=== PATIENT | male | born 1945 | race American Indian/Alaskan Native ===

== ENCOUNTER 2019-02-22 13:15 | Inpatient (IN) | payer MEDICARE ==
--- NOTE | 2019-02-22 14:35 | Event Note ---
ED Screening Note Date of service: 02/22/19 Time: 14:30 ED Screening Note: 73 y/o male c/o pink eye times 4-5 days. Having abd pain, dizziness no engery, decrease appetite. PMH HTN, cholestrol This initial assessment/diagnostic orders/clinical plan/treatment(s) is/are subject to change based on patients health status, clinical progression and re- assessment by fellow clinical providers in the ED. Further treatment and workup at subsequent clinical providers discretion. Patient/guardian urged not to elope from the ED as their condition may be serious if not clinically assessed and managed. Initial orders include:
[2019-02-22 15:31] LABS: Alanine Aminotransferase 65 units/L (7-56); Albumin 2.8 g/dL (3.9-5); BUN/Creatinine Ratio 12; Blood Urea Nitrogen 14 mg/dL (9-20); Calcium 9.3 mg/dL (8.4-10.2); Hemolysis Index 36
--- NOTE | 2019-02-22 16:08 | XRay Report ---
PROCEDURE: XR CHEST ROUTINE 2V TECHNIQUE: PA and lateral chest radiographs were obtained. HISTORY: weakness COMPARISONS: None. FINDINGS: Frontal and lateral views the chest were acquired. There is a right-sided port with its tip in superior vena cava. There is no pneumothorax. There is no consolidative infiltrate. IMPRESSION: No consolidative infiltrate This document is electronically signed by Sidney Daly MD., February 22 2019 04:06:20 PM ET
[2019-02-22 16:16] LABS: Hematocrit 27.9 % (35.5-45.6); Hemoglobin 8.3 gm/dl (11.8-15.2); Mean Corpuscular HGB Conc 30 % (32-34); Mean Corpuscular Volume 80 fl (84-94); Red Blood Count 3.51 M/mm3 (3.65-5.03)
[2019-02-22 16:17] LABS: Red Cell Distribution Width 20.5 % (13.2-15.2)
[2019-02-22 17:07] LABS: Basophils % (Manual) 0.5 % (0.0-1.8); Eosinophils % (Manual) 0.5 % (0.0-4.3); Monocytes % (Manual) 2.5 % (0.0-7.3); Total Cells Counted 200
[2019-02-22 17:08] LABS: Anisocytosis 2+; Hypochromasia 2+; Target Cells 1+
[2019-02-22 17:10] LABS: Ovalocytes Few
[2019-02-22 17:11] LABS: Tear Drop Cells Few
[2019-02-22 17:12] LABS: Poikilocytosis 2+; Schistocytes Few; Smudge Cells 3+
[2019-02-22 17:13] LABS: Platelet Estimate Appears Decreased
[2019-02-22 17:14] LABS: Platelet Count 28 K/mm3 (140-440)
--- NOTE | 2019-02-22 18:31 | Emergency Department Report ---
- General Chief complaint: Weakness Stated complaint: PINK EYE/NOT FEELING WELL Time Seen by Provider: 02/22/19 16:45 Source: patient Mode of arrival: Ambulatory Limitations: No Limitations - History of Present Illness Initial comments: Patient is a 73-year-old male that presents emergency room for complaints of weakness and dizziness. Patient states he's also been having red eyes. He is almost gone on for 2-4 days. Patient states he drinks alcohol every day. Patient states he smokes every day. Patient denies chest pain or shortness of breath. Patient states his symptoms are worsening. Patient states he's been checking his blood pressure always been low. Patient states she has a history of hypertension and T-cell lymphoma. Patient states he had 2 coronary stents in the past.. MD Complaint: generalized weakness, lack of energy -: Gradual, days(s) (2-4 days) Consistency: constant Improves with: rest Worsens with: movement, exertion Associated Symptoms: loss of appetite. denies: chest pain, confusion, dark sto ols, diaphoresis, dysuria, easy bruising, fever/chills, headaches, nausea/vomiting, myalgias, rash, shortness of breath, syncope - Related Data Allergies Allergy/AdvReac Type Severity Reaction Status Date / Time No Known Allergies Allergy Verified 02/22/19 13:20 ED Review of Systems ROS: Stated complaint: PINK EYE/NOT FEELING WELL Other details as noted in HPI Constitutional: weakness. denies: chills, fever Eyes: denies: eye pain, eye discharge, vision change ENT: denies: ear pain, throat pain Respiratory: denies: cough, shortness of breath, wheezing Cardiovascular: denies: chest pain, palpitations Endocrine: no symptoms reported Gastrointestinal: denies: abdominal pain, nausea, diarrhea Genitourinary: denies: urgency, dysuria Musculoskeletal: denies: back pain, joint swelling, arthralgia Skin: denies: rash, lesions Neurological: weakness, vertigo. denies: headache, paresthesias Psychiatric: denies: anxiety, depression Hematological/Lymphatic: denies: easy bleeding, easy bruising ED Past Medical Hx - Past Medical History Previous Medical History?: Yes Hx Hypertension: Yes Hx CVA: No Hx COPD: Yes Additional medical history: high cholesterol. T-cell lymphoma - Surgical History Past Surgical History?: Yes Hx Coronary Stent: Yes (x2) - Family History Family history: no significant - Social History Smoking Status: Current Every Day Smoker Substance Use Type: Alcohol (patient drinks daily) ED Physical Exam - General Limitations: No Limitations General appearance: alert, in no apparent distress - Head Head exam: Present: atraumatic, normocephalic - Eye Eye exam: Present: normal appearance, PERRL, conjunctival injection. Absent: periorbital swelling, periorbital tenderness Pupils: Present: normal accommodation - ENT ENT exam: Present: mucous membranes dry - Neck Neck exam: Present: normal inspection - Respiratory Respiratory exam: Present: normal lung sounds bilaterally. Absent: respiratory distress, wheezes, rales - Cardiovascular Cardiovascular Exam: Present: regular rate, normal rhythm. Absent: systolic murmur, diastolic murmur, rubs, gallop - GI/Abdominal GI/Abdominal exam: Present: soft, normal bowel sounds - Rectal Rectal exam: Present: deferred - Extremities Exam Extremities exam: Present: normal inspection - Back Exam Back exam: Present: normal inspection - Neurological Exam Neurological exam: Present: alert, oriented X3 - Psychiatric Psychiatric exam: Present: normal affect, normal mood - Skin Skin exam: Present: warm, dry, intact, normal color. Absent: rash - Assessment Assessment Interval: Baseline - Level of Consciousness 1a. Level of Consciousness: alert/keenly responsive - LOC Questions 1b. LOC Questions: answers both correctly - LOC Command 1c. LOC Commands: performs tasks correctly - Best Gaze 2. Best Gaze: normal - Visual 3. Visual: no visual loss - Facial Palsy 4. Facial Palsy: normal symmetrical movement - Motor Arm 5a. Motor Arm Left: no drift 5b. Motor Arm Right: no drift - Motor Leg 6a. Motor Leg Left: no drift 6b. Motor Leg Right: no drift - Limb Ataxia 7. Limb Ataxia: absent - Sensory 8. Sensory: normal - Best Language 9. Best Language: no aphasia - Dysarthria 10. Dysarthria: normal - Extinction and Inattention 11. Extinction/Inattention: no abnormality - Scoring Total Score: 0 Stroke Severity: No Stroke Symptoms ED Course Vital Signs 02/22/19 02/22/19 02/22/19 14:27 16:41 16:46 Temperature 97.8 F Pulse Rate 91 H 73 Respiratory 18 26 H Rate Blood Pressure 106/61 130/63 Blood Pressure [Left] O2 Sat by Pulse 98 98 94 Oximetry 02/22/19 02/22/19 02/22/19 17:00 17:16 17:30 Temperature Pulse Rate 75 73 77 Respiratory 13 22 21 Rate Blood Pressure 131/64 114/59 126/66 Blood Pressure [Left] O2 Sat by Pulse 95 92 97 Oximetry 02/22/19 02/22/19 02/22/19 17:46 19:25 21:00 Temperature 98.3 F Pulse Rate 81 83 93 H Respiratory 25 H 17 23 Rate Blood Pressure 106/47 103/62 Blood Pressure 114/83 [Left] O2 Sat by Pulse 95 98 96 Oximetry 02/22/19 02/22/19 02/22/19 22:30 23:00 23:30 Temperature Pulse Rate 87 88 80 Respiratory 22 23 21 Rate Blood Pressure 127/69 125/61 107/58 Blood Pressure [Left] O2 Sat by Pulse 94 89 93 Oximetry 02/23/19 02/23/19 00:00 00:46 Temperature Pulse Rate 80 92 H Respiratory 24 23 Rate Blood Pressure 112/62 125/71 Blood Pressure [Left] O2 Sat by Pulse 93 92 Oximetry - Reevaluation(s) Reevaluation #1: Patient states he is feeling better. Patient will be given a banana bag. Discussed all results with patient. Patient will be admitted to the hospitalist service. Patient agrees to plan of care. 02/22/19 20:32 - Consultations Consultation #1: Hospitalist consulted for admission. Hospitalist to admit patient. Hospitalist to assume care patient. 02/22/19 20:35 Consultation #2: Dr. Westfall , hematology consulted. He recommends LDH, vitamin B12 and folate as well as call The hematology lab and have the pathologist read a peripheral smear 02/22/19 21:25 ED Medical Decision Making - Lab Data Result diagrams: 02/22/19 14:49 02/22/19 14:49 - EKG Data -: EKG Interpreted by Sd EKG shows normal: sinus rhythm, axis, intervals, QRS complexes, ST-T waves Rate: normal - Radiology Data Radiology results: report reviewed PROCEDURE: CT HEAD/BRAIN WO CON TECHNIQUE: Computerized tomography of the head was performed without contrast material. CT DOSE LENGTH PRODUCT: 1047.5 mGycm HISTORY: dizziness. weakness COMPARISONS: None . FINDINGS: Skull and scalp: Normal . Paranasal sinuses: Normal . Ventricles and subarachnoid spaces: Normal . Cerebrum: No evidence of hemorrhage, acute infarction or mass . Cerebellum and brainstem: No evidence of hemorrhage, acute infarction or mass . Noted is atherosclerotic calcification of the cavernous ICAs and vertebral arteries bilaterally. IMPRESSION: Atherosclerosis of the cavernous ICAs and vertebral arteries noted bilaterally No acute intracranial findings PROCEDURE: XR CHEST ROUTINE 2V TECHNIQUE: PA and lateral chest radiographs were obtained. HISTORY: weakness COMPARISONS: None. FINDINGS: Frontal and lateral views the chest were acquired. There is a right- sided port with its tip in superior vena cava. There is no pneumothorax. There is no consolidative infiltrate. IMPRESSION: No consolidative infiltrate - Medical Decision Making She is a 73-year-old male who presents emergency room for weakness and dizziness. Patient found to have elevated WBC and hyperkalemia and abnormal liver function testing and hyponatremia. Patient is a daily drinker. Patient given a banana bag. Patient was admitted to the hospitalist service for further evaluation treatment. Patient also given insulin, D50 and calcium chloride. Patient's head CT is negative for acute findings. Patient's chest x-ray negative. Hematology consult. - Differential Diagnosis hyperkalemia. anemia. dizziness. weakness. Critical Care Time: Yes Critical care attestation.: If time is entered above; I have spent that time in minutes in the direct care of this critically ill patient, excluding procedure time. Critical Care Time: 45 minutes ED Disposition Clinical Impression: Weakness, Dizziness, Hyperkalemia, Alcohol abuse, Hyponatremia, Abnormal LFTs (liver function tests) Elevated white blood cell count, unspecified Qualifiers: Leukocytosis type: unspecified Qualified Code(s): D72.829 - Elevated white blood cell count, unspecified Anemia Qualifiers: Anemia type: unspecified type Qualified Code(s): D64.9 - Anemia, unspecified Disposition: [id number] OP ADMIT IP TO THIS HOSP Is pt being admited?: Yes Does the pt Need Aspirin: No Condition: Critical Time of Disposition: 20:35
[2019-02-22] MEDS ORDERED: KIONEX PO ONE (18:35)
[2019-02-22] MEDS ORDERED: HumuLIN R IV ONE (18:35)
[2019-02-22] MEDS ORDERED: D50W (25GM) Syringe IV ONE (18:35)
--- NOTE | 2019-02-22 19:15 | Cat Scan Report ---
PROCEDURE: CT HEAD/BRAIN WO CON TECHNIQUE: Computerized tomography of the head was performed without contrast material. CT DOSE LENGTH PRODUCT: 1047.5 mGycm HISTORY: dizziness. weakness COMPARISONS: None . FINDINGS: Skull and scalp: Normal . Paranasal sinuses: Normal . Ventricles and subarachnoid spaces: Normal . Cerebrum: No evidence of hemorrhage, acute infarction or mass . Cerebellum and brainstem: No evidence of hemorrhage, acute infarction or mass . Noted is atherosclerotic calcification of the cavernous ICAs and vertebral arteries bilaterally. IMPRESSION: Atherosclerosis of the cavernous ICAs and vertebral arteries noted bilaterally No acute intracranial findings This document is electronically signed by Mal Celaya MD., February 22 2019 07:13:31 PM ET
[2019-02-22] MEDS ORDERED: CALCIUM CHLORIDE 1,000 MG in NACL 0.9% 100 ML IV ONE (20:00)
[2019-02-22] MEDS ORDERED: ZOFRAN ONE (20:02)
[2019-02-22] MEDS ORDERED: DILAUDID ONE (20:03)
[2019-02-22] MEDS ORDERED: PLAVIX ONE (20:05)
[2019-02-22] MEDS ORDERED: NITRO-BID 2% TP ONE (20:05)
[2019-02-22] MEDS ORDERED: VITAMIN B-1 100 MG, FOLVITE 1 MG, INFUVITE 10 ML in NACL 0.9% 1000 ML 1,000 ML IV ONE (20:32)
[2019-02-22] MEDS ORDERED: SODIUM CHLORIDE FLUSH SYRINGE 10 ML IV PRN (20:51)
[2019-02-22] MEDS ORDERED: TYLENOL PO PRN (20:51)
[2019-02-22] MEDS ORDERED: ZOFRAN IV PRN (20:51)
[2019-02-22] MEDS ORDERED: MORPHINE IV PRN ×2 (20:51→21:46)
[2019-02-22] MEDS ORDERED: NACL 0.9% 1000 ML 1,000 ML IV SCH (21:00)
[2019-02-22] MEDS ORDERED: KIONEX ONE (21:03)
--- NOTE | 2019-02-22 21:04 | History and Physical Report ---
<VONNIE BLACK - Last Filed: 02/23/19 01:54> History of Present Illness Date of examination: 02/22/19 Date of admission: 02/22/2019 Chief complaint: Weakness History of present illness: Patient is a 73-year-old male with PMHx of COPD, CAD status post stent 2, HTN, hyperlipidemia, history of T-cell lymphoma (following up with [facility]), alcohol use disorder who presents to the ER with complaints of weakness and dizziness. Patient reports that he has a history of T-cell lymphoma which makes him weak and tired at time, he also complains of watery and red eyes for the past few days. Patient denies any other complaints, he denies headache, denies visual changes, denies abdominal pain, denies shortness of breath, denies chest pain, denies fever or chills. Patient states that he comes to the ER because the symptoms were getting worse, his blood pressure is low. Patient admits to 3 alcoholic beverage per day and quit cigarettes many years ago. Patient was evaluated in the ER his WBC was 494.6, his potassium was 6.6, plt 28, his LFT's were elevated, he is admitted for further evaluation of his symptoms. Past History Past Surgical History: Other (Port-a cath) Social history: lives with family, smoking (snort and chew ), alcohol abuse (3 drinks/day) Medications and Allergies Allergies Allergy/AdvReac Type Severity Reaction Status Date / Time No Known Allergies Allergy Verified 02/22/19 13:20 Active Meds: Active Medications Acetaminophen (Tylenol) 650 mg PO Q4H PRN PRN Reason: Pain MILD(1-3)/Fever >100.5/SEGAL Thiamine HCl 100 mg/ Folic Acid 1 mg/ Multivitamins/Minerals 10 ml/ Sodium Chloride 1,011.2 mls @ 250 mls/hr IV ONCE ONE Stop: 02/23/19 00:34 Sodium Chloride (Nacl 0.9% 1000 Ml) 1,000 mls @ 75 mls/hr IV DIRECT MONICA Morphine Sulfate (Morphine) 2 mg IV Q4H PRN PRN Reason: Pain, Moderate (4-6) Ondansetron HCl (Zofran) 4 mg IV Q8H PRN PRN Reason: Nausea And Vomiting Sodium Chloride (Sodium Chloride Flush Syringe 10 Ml) 10 ml IV BID MONICA Sodium Chloride (Sodium Chloride Flush Syringe 10 Ml) 10 ml IV PRN PRN PRN Reason: LINE FLUSH Review of Systems Constitutional: weakness Neurological: weakness Exam - Constitutional Vitals: Temp Pulse Resp BP Pulse Ox 98.3 F 83 17 114/83 98 02/22/19 19:25 02/22/19 19:25 02/22/19 19:25 02/22/19 19:25 02/22/19 19:25 General appearance: Present: no acute distress - EENT Eyes: Present: EOM intact ENT: hearing intact - Neck Neck: Present: normal ROM - Respiratory Respiratory effort: normal Respiratory: bilateral: CTA - Cardiovascular Rhythm: regular Heart Sounds: Present: S1 & S2 - Extremities Extremities: no ischemia Extremity abnormal: edema Peripheral Pulses: within normal limits - Abdominal General gastrointestinal: Present: non-tender, non-distended Male genitourinary: Present: deferred - Rectal Rectal Exam: deferred - Integumentary Integumentary: Present: clear, warm, dry - Musculoskeletal Musculoskeletal: strength equal bilaterally - Psychiatric Psychiatric: cooperative - Neurologic Neurologic: moves all extremities Results - Labs CBC & Chem 7: 02/22/19 14:49 02/22/19 14:49 Labs: Laboratory Last Values WBC > 388.0 K/mm3 (4.5-11.0) H* 02/22/19 14:49 RBC 3.51 M/mm3 (3.65-5.03) L 02/22/19 14:49 Hgb 8.3 gm/dl (11.8-15.2) L 02/22/19 14:49 Hct 27.9 % (35.5-45.6) L 02/22/19 14:49 MCV 80 fl (84-94) L 02/22/19 14:49 MCH 24 pg (28-32) L 02/22/19 14:49 MCHC 30 % (32-34) L 02/22/19 14:49 RDW 20.5 % (13.2-15.2) H 02/22/19 14:49 Plt Count 28 K/mm3 (140-440) L 02/22/19 14:49 Lymph % (Auto) Collision Mechanic 02/22/19 14:49 Lymph # Collision Mechanic 02/22/19 14:49 Add Manual Diff Complete 02/22/19 14:49 Total Counted 200 02/22/19 14:49 Seg Neutrophils % Collision Mechanic 02/22/19 14:49 Seg Neuts % (Manual) 4.5 % (40.0-70.0) L 02/22/19 14:49 0 % 02/22/19 14:49 74.5 % (13.4-35.0) H 02/22/19 14:49 Reactive Lymphs % (Man) 0 % 02/22/19 14:49 2.5 % (0.0-7.3) 02/22/19 14:49 0.5 % (0.0-4.3) 02/22/19 14:49 0.5 % (0.0-1.8) 02/22/19 14:49 0 % 02/22/19 14:49 0 % 02/22/19 14:49 0 % 02/22/19 14:49 17.5 % 02/22/19 14:49 Nucleated RBC % Not Reportable 02/22/19 14:49 Seg Neutrophils # Man 0.0 K/mm3 (1.8-7.7) L 02/22/19 14:49 Band Neutrophils # 0.0 K/mm3 02/22/19 14:49 0.0 K/mm3 (1.2-5.4) L 02/22/19 14:49 Abs React Lymphs (Man) 0.0 K/mm3 02/22/19 14:49 0.0 K/mm3 (0.0-0.8) 02/22/19 14:49 0.0 K/mm3 (0.0-0.4) 02/22/19 14:49 0.0 K/mm3 (0.0-0.1) 02/22/19 14:49 0.0 K/mm3 02/22/19 14:49 0.0 K/mm3 02/22/19 14:49 0.0 K/mm3 02/22/19 14:49 Blast Cells # 0.0 K/mm3 02/22/19 14:49 Hypersegmented Neuts Not Reportable 02/22/19 14:49 Hyposegmented Neuts Not Reportable 02/22/19 14:49 Hypogranular Neuts Not Reportable 02/22/19 14:49 3+ 02/22/19 14:49 Not Reportable 02/22/19 14:49 Not Reportable 02/22/19 14:49 Not Reportable 02/22/19 14:49 Not Reportable 02/22/19 14:49 Not Reportable 02/22/19 14:49 Appears decreased 02/22/19 14:49 Not Reportable 02/22/19 14:49 Plt Clumps, EDTA Not Reportable 02/22/19 14:49 Not Reportable 02/22/19 14:49 Not Reportable 02/22/19 14:49 Not Reportable 02/22/19 14:49 Plt Morphology Comment Not Reportable 02/22/19 14:49 RBC Morphology Not Reportable 02/22/19 14:49 Dimorphic RBCs Not Reportable 02/22/19 14:49 Not Reportable 02/22/19 14:49 2+ 02/22/19 14:49 2+ 02/22/19 14:49 2+ 02/22/19 14:49 Not Reportable 02/22/19 14:49 Not Reportable 02/22/19 14:49 Not Reportable 02/22/19 14:49 Not Reportable 02/22/19 14:49 Not Reportable 02/22/19 14:49 1+ 02/22/19 14:49 Few 02/22/19 14:49 Few 02/22/19 14:49 Not Reportable 02/22/19 14:49 Not Reportable 02/22/19 14:49 Not Reportable 02/22/19 14:49 Not Reportable 02/22/19 14:49 Not Reportable 02/22/19 14:49 Not Reportable 02/22/19 14:49 Not Reportable 02/22/19 14:49 Acanthocytes (Spur) Not Reportable 02/22/19 14:49 Rouleaux Not Reportable 02/22/19 14:49 Not Reportable 02/22/19 14:49 Few 02/22/19 14:49 Not Reportable 02/22/19 14:49 Not Reportable 02/22/19 14:49 Hem Pathologist Commnt Sent to pathology 02/22/19 14:49 Sodium 132 mmol/L (137-145) L 02/22/19 14:49 Potassium 6.6 mmol/L (3.6-5.0) H* 02/22/19 14:49 Chloride 100.1 mmol/L (98-107) 02/22/19 14:49 Carbon Dioxide 21 mmol/L (22-30) L 02/22/19 14:49 18 mmol/L 02/22/19 14:49 BUN 14 mg/dL (9-20) 02/22/19 14:49 1.2 mg/dL (0.8-1.5) 02/22/19 14:49 Estimated GFR > 60 ml/min 02/22/19 14:49 12 % 02/22/19 14:49 Glucose 96 mg/dL (75-100) 02/22/19 14:49 Calcium 9.3 mg/dL (8.4-10.2) 02/22/19 14:49 5.50 mg/dL (0.1-1.2) H 02/22/19 14:49 AST 201 units/L (5-40) H 02/22/19 14:49 ALT 65 units/L (7-56) H 02/22/19 14:49 274 units/L (35-129) H 02/22/19 14:49 6.5 g/dL (6.3-8.2) 02/22/19 14:49 2.8 g/dL (3.9-5) L 02/22/19 14:49 0.8 % 02/22/19 14:49 43 units/L (13-60) 02/22/19 14:49 Plasma/Serum Alcohol 0.03 % (0-0.07) 02/22/19 14:49 Assessment and Plan Assessment and plan: 1. Generalized weakness 2. T Cell Lymphoma with acute exacerbation 3. Elevated WBC (due to T cell lymphoma) 3. Hyperkalemia 4. Dehydration 5. Thrombocytopenia 6. Elevated LFT's 7. CAD s/p stent x2 8. HTN (BP stable) 9. Hyperlipidemia 10. COPD (stable) 11. H/o Tobacco used disorder 12. Alcohol use disorder Plan: [facility] Initiate CIWA protocol NS for hydration Banana bag Q24hr Recheck Electrolytes K/Mg and labs Consult hematology/oncology for further management Plan of care was d/w pt, voiced understanding Pt's condition and plan of care of care discussed with Dr Salgado Advance Directives: Yes VTE prophylaxis?: Not ordered Contraindication Mechanical VTE Prophylaxis: Contraindicated (low platelet) Plan of care discussed with patient/family: Yes <MARCIN SALGADO - Last Filed: 02/23/19 23:08> History of Present Illness Date of admission: 02/22/19 20:51 Medications and Allergies Active Meds: Active Medications Acetaminophen (Tylenol) 650 mg PO Q4H PRN PRN Reason: Pain MILD(1-3)/Fever >100.5/SEGAL Sodium Chloride (Nacl 0.9% 1000 Ml) 1,000 mls @ 75 mls/hr IV DIRECT MONICA Piperacillin Sod/Tazobactam Sod (Zosyn/Ns 4.5gm/100ml) 4.5 gm in 100 mls @ 200 mls/hr IV Q8HR MONICA; Protocol Last Admin: 02/22/19 22:56 Dose: 200 mls/hr Documented by: Morphine Sulfate (Morphine) 1 mg IV Q4H PRN PRN Reason: Pain, Moderate (4-6) Ondansetron HCl (Zofran) 4 mg IV Q8H PRN PRN Reason: Nausea And Vomiting Sodium Chloride (Sodium Chloride Flush Syringe 10 Ml) 10 ml IV BID [facility] Last Admin: 02/22/19 22:47 Dose: 10 ml Documented by: Sodium Chloride (Sodium Chloride Flush Syringe 10 Ml) 10 ml IV PRN PRN PRN Reason: LINE FLUSH Exam - Constitutional Vitals: Temp Pulse Resp BP Pulse Ox 98.3 F 92 H 23 125/71 92 02/22/19 19:25 02/23/19 00:46 02/23/19 00:46 02/23/19 00:46 02/23/19 00:46 Results - Labs CBC & Chem 7: 02/22/19 14:49 02/23/19 17:28 Labs: Laboratory Last Values WBC > 388.0 K/mm3 (4.5-11.0) H* 02/22/19 14:49 RBC 3.51 M/mm3 (3.65-5.03) L 02/22/19 14:49 Hgb 8.3 gm/dl (11.8-15.2) L 02/22/19 14:49 Hct 27.9 % (35.5-45.6) L 02/22/19 14:49 MCV 80 fl (84-94) L 02/22/19 14:49 MCH 24 pg (28-32) L 02/22/19 14:49 MCHC 30 % (32-34) L 02/22/19 14:49 RDW 20.5 % (13.2-15.2) H 02/22/19 14:49 Plt Count 28 K/mm3 (140-440) L 02/22/19 14:49 Lymph % (Auto) Collision Mechanic 02/22/19 14:49 Lymph # Collision Mechanic 02/22/19 14:49 Add Manual Diff Complete 02/22/19 14:49 Total Counted 200 02/22/19 14:49 Seg Neutrophils % Collision Mechanic 02/22/19 14:49 Seg Neuts % (Manual) 4.5 % (40.0-70.0) L 02/22/19 14:49 0 % 02/22/19 14:49 74.5 % (13.4-35.0) H 02/22/19 14:49 Reactive Lymphs % (Man) 0 % 02/22/19 14:49 2.5 % (0.0-7.3) 02/22/19 14:49 0.5 % (0.0-4.3) 02/22/19 14:49 0.5 % (0.0-1.8) 02/22/19 14:49 0 % 02/22/19 14:49 0 % 02/22/19 14:49 0 % 02/22/19 14:49 17.5 % 02/22/19 14:49 Nucleated RBC % Not Reportable 02/22/19 14:49 Seg Neutrophils # Man 0.0 K/mm3 (1.8-7.7) L 02/22/19 14:49 Band Neutrophils # 0.0 K/mm3 02/22/19 14:49 0.0 K/mm3 (1.2-5.4) L 02/22/19 14:49 Abs React Lymphs (Man) 0.0 K/mm3 02/22/19 14:49 0.0 K/mm3 (0.0-0.8) 02/22/19 14:49 0.0 K/mm3 (0.0-0.4) 02/22/19 14:49 0.0 K/mm3 (0.0-0.1) 02/22/19 14:49 0.0 K/mm3 02/22/19 14:49 0.0 K/mm3 02/22/19 14:49 0.0 K/mm3 02/22/19 14:49 Blast Cells # 0.0 K/mm3 02/22/19 14:49 Hypersegmented Neuts Not Reportable 02/22/19 14:49 Hyposegmented Neuts Not Reportable 02/22/19 14:49 Hypogranular Neuts Not Reportable 02/22/19 14:49 3+ 02/22/19 14:49 Not Reportable 02/22/19 14:49 Not Reportable 02/22/19 14:49 Not Reportable 02/22/19 14:49 Not Reportable 02/22/19 14:49 Not Reportable 02/22/19 14:49 Appears decreased 02/22/19 14:49 Not Reportable 02/22/19 14:49 Plt Clumps, EDTA Not Reportable 02/22/19 14:49 Not Reportable 02/22/19 14:49 Not Reportable 02/22/19 14:49 Not Reportable 02/22/19 14:49 Plt Morphology Comment Not Reportable 02/22/19 14:49 RBC Morphology Not Reportable 02/22/19 14:49 Dimorphic RBCs Not Reportable 02/22/19 14:49 Not Reportable 02/22/19 14:49 2+ 02/22/19 14:49 2+ 02/22/19 14:49 2+ 02/22/19 14:49 Not Reportable 02/22/19 14:49 Not Reportable 02/22/19 14:49 Not Reportable 02/22/19 14:49 Not Reportable 02/22/19 14:49 Not Reportable 02/22/19 14:49 1+ 02/22/19 14:49 Few 02/22/19 14:49 Few 02/22/19 14:49 Not Reportable 02/22/19 14:49 Not Reportable 02/22/19 14:49 Not Reportable 02/22/19 14:49 Not Reportable 02/22/19 14:49 Not Reportable 02/22/19 14:49 Not Reportable 02/22/19 14:49 Not Reportable 02/22/19 14:49 Acanthocytes (Spur) Not Reportable 02/22/19 14:49 Rouleaux Not Reportable 02/22/19 14:49 Not Reportable 02/22/19 14:49 Few 02/22/19 14:49 Not Reportable 02/22/19 14:49 Not Reportable 02/22/19 14:49 Hem Pathologist Commnt Sent to pathology 02/22/19 14:49 Sodium 132 mmol/L (137-145) L 02/22/19 14:49 Potassium 6.6 mmol/L (3.6-5.0) H* 02/22/19 14:49 Chloride 100.1 mmol/L (98-107) 02/22/19 14:49 Carbon Dioxide 21 mmol/L (22-30) L 02/22/19 14:49 18 mmol/L 02/22/19 14:49 BUN 14 mg/dL (9-20) 02/22/19 14:49 1.2 mg/dL (0.8-1.5) 02/22/19 14:49 Estimated GFR > 60 ml/min 02/22/19 14:49 12 % 02/22/19 14:49 Glucose 96 mg/dL (75-100) 02/22/19 14:49 Calcium 9.3 mg/dL (8.4-10.2) 02/22/19 14:49 5.50 mg/dL (0.1-1.2) H 02/22/19 14:49 AST 201 units/L (5-40) H 02/22/19 14:49 ALT 65 units/L (7-56) H 02/22/19 14:49 274 units/L (35-129) H 02/22/19 14:49 1092 units/L (91-180) H 02/22/19 14:49 6.5 g/dL (6.3-8.2) 02/22/19 14:49 2.8 g/dL (3.9-5) L 02/22/19 14:49 0.8 % 02/22/19 14:49 43 units/L (13-60) 02/22/19 14:49 Vitamin B12 > 2000 pg/mL (211-911) H 02/22/19 14:49 12.06 ng/mL (7.3-26.0) 02/22/19 14:49 Dalila (Yellow) 02/22/19 20:57 Slightly-cloudy (Clear) 02/22/19 20:57 5.0 (5.0-7.0) 02/22/19 20:57 Ur Specific [place] 1.014 (1.003-1.030) 02/22/19 20:57 <15 mg/dl mg/dL (Negative) 02/22/19 20:57 50 mg/dL (Negative) 02/22/19 20:57 Neg mg/dL (Negative) 02/22/19 20:57 Neg (Negative) 02/22/19 20:57 Neg (Negative) 02/22/19 20:57 Sm (Negative) 02/22/19 20:57 Positive (Negative) 02/22/19 20:57 4.0 mg/dL (<2.0) 02/22/19 20:57 Ur Leukocyte Esterase Neg (Negative) 02/22/19 20:57 9.0 /HPF (0.0-6.0) H 02/22/19 20:57 3.0 /HPF (0.0-6.0) 02/22/19 20:57 U Epithel Cells (Auto) 2.0 /HPF (0-13.0) 02/22/19 20:57 1+ /HPF (Negative) 02/22/19 20:57 Ur Transition Epith Cell 1 /HPF 02/22/19 20:57 Hyaline Casts 6 /LPF 02/22/19 20:57 Granular Casts 3 /LPF 02/22/19 20:57 Few /HPF 02/22/19 20:57 Plasma/Serum Alcohol 0.03 % (0-0.07) 02/22/19 14:49 Assessment and Plan Assessment and plan: 73-year-old man with a history of T-cell lymphoma, coronary artery disease, hypertension, hyperlipidemia presents to the emergency room with complaints of generalized weakness, dizziness. He was found to markedly elevated white count of 494. Obtain ultrasound of the abdomen for now since the CAT scan is down, check CT abdomen. Possible component of infection, urinary tract , start Zosyn, obtain blood cultures. Discussed with Dr. Sarmiento transfer to [place], he states he will evaluate patient first
[2019-02-22 21:26] LABS: Bacteria,Urine 1+ /HPF (Negative); Bilirubin,Urine SM (Negative); Blood,Urine NEG (Negative); Color,Urine Amber (Yellow); Granular Casts,Urine 3 /LPF; Hyaline Casts,Urine 6 /LPF; Mucus,Urine FEW /HPF; Protein,Urine <15 mg/dL mg/dL (Negative)
[2019-02-22 21:36] LABS: Ictotest,Urine Positive (Negative)
[2019-02-22] MEDS: SODIUM CHLORIDE FLUSH SYRINGE 10 ML IV SCH (22:47)
[2019-02-22] MEDS: ZOSYN/NS 4.5GM/100ML 4.5 GM/100 ML VIAL IV SCH (22:56)
--- NOTE | 2019-02-23 01:24 | Ultrasound Report ---
PROCEDURE: Abdominal ultrasound. TECHNIQUE: Real-time sonography in multiple planes of the abdomen was performed with image documenta tion. HISTORY: Abnormal liver function tests, lymphoma. COMPARISONS: None. FINDINGS: The pancreas is grossly normal but suboptimally visualized. There are at least 2 simple cysts in the left lobe of the liver. The portal vein is patent. The gallbladder is contracted. Gallbladder wall th ickness measurements are not accurate. There are no definite gallstones. A repeat study after proper fasting is recommended. Both kidneys appear normal in size and have normal renal echogenicity. There is an echogenic focus in the right kidney which may represent a nonobstructing calculus. There are no renal masses. There is no hydronephrosis. The proximal portion of the abdominal aorta has a normal c aliber. The spleen is probably enlarged. The common hepatic duct measures 2.9 mm. The inferior vena c simran is patent. IMPRESSION: Hepatic cysts. Probable splenomegaly. Possible nonobstructing right renal calculus. This document is electronically signed by Humphrey Gardner MD., February 23 2019 01:22:22 AM ET
--- NOTE | 2019-02-23 03:01 | Cat Scan Report ---
PROCEDURE: CT ABDOMEN PELVIS W CON TECHNIQUE: Computerized axial tomography of the abdomen and pelvis was performed after the IV inject ion of iodinated nonionic contrast. HISTORY: ab lft, lymphoma COMPARISONS: None . FINDINGS: Images through the lung bases show focal airspace disease versus pleuroparenchymal scarring in the po sterobasal segment of the left lower lobe. Hepatosplenomegaly. The spleen measures approximately 18 cm longitudinally. Hepatic cysts in the left lobe, the largest measuring approximately 4.7 cm in diameter. Trace perihepatic fluid. Adrenals and pancreas are within normal limits. Partially contracted gallbladder with pericholecystic fluid. No gallstones are identified. Nonspecific retroperitoneal nodes. No evidence of obstructive uropathy. No bowel obstruction or free intraperitoneal air. No evidence of colitis or diverticulitis. No signs of appendicitis. Nonspecific trace fluid along the paracolic gutters left greater than right. No pelvic adenopathy. Thickened urinary bladder which may represent cystitis or sequela from chronic outlet obstruction. Prominently enlarged prostate with calcifications. There is no evidence of inguinal hernia. Nonspecific rounded subcutaneous soft tissue mass posterior to the coccyx, partially visualized on th is examination and measuring approximately 3 cm.. IMPRESSION: Hepatosplenomegaly. The spleen measures approximately 18 cm longitudinally. Trace perihepatic fluid, and trace fluid extending along the paracolic gutters left greater than righ t, which may be reactive. Small area of focal airspace disease versus pleuroparenchymal scarring in the posterobasal segment of the left lower lobe. Partially contracted gallbladder with pericholecystic fluid, which may be secondary to intrinsic gall bladder disease or hepatic dysfunction. No gallstones are identified. Further evaluation with gallbl adder ultrasound may be helpful. Thickened urinary bladder wall which may represent cystitis of sequela from chronic outlet obstructio n. Prominently enlarged prostate with calcifications. Nonspecific rounded subcutaneous soft tissue mass posterior to the coccyx is measuring approximately 3 cm in partially visualized. Correlation with clinical exam recommended. This document is electronically signed by Hilario Phillips MD., February 23 2019 02:58:51 AM ET
[2019-02-23] MEDS ORDERED: NACL 0.9% 1000 ML 1,000 ML ONE ×2 (05:29→17:37)
[2019-02-23] MEDS: ZOSYN/NS 4.5GM/100ML 4.5 GM/100 ML VIAL IV SCH ×2 (07:07→15:48)
--- NOTE | 2019-02-23 07:48 | Event Note ---
Date: 02/23/19 [id number]
[2019-02-23] MEDS: SODIUM CHLORIDE FLUSH SYRINGE 10 ML IV SCH (13:02)
[2019-02-23] MEDS ORDERED: ZOSYN/NS 4.5GM/100ML 4.5 GM/100 ML VIAL IV ONE (15:38)
--- NOTE | 2019-02-23 16:28 | Progress Note ---
Assessment and Plan Assessment and plan: Acute Leukemia Hyperkalemia Nephrology consult awaiting transfer to [place] DR [facility] Hospitalist Physical - Constitutional Vitals: Temp Pulse Resp BP Pulse Ox 97.9 F 87 15 114/57 98 02/23/19 13:00 02/23/19 09:46 02/23/19 09:46 02/23/19 09:46 02/23/19 09:46 General appearance: Present: no acute distress Results - Labs CBC & Chem 7: 02/22/19 14:49 02/23/19 10:09 Labs: Laboratory Last Values WBC > 388.0 K/mm3 (4.5-11.0) H* 02/22/19 14:49 RBC 3.51 M/mm3 (3.65-5.03) L 02/22/19 14:49 Hgb 8.3 gm/dl (11.8-15.2) L 02/22/19 14:49 Hct 27.9 % (35.5-45.6) L 02/22/19 14:49 MCV 80 fl (84-94) L 02/22/19 14:49 MCH 24 pg (28-32) L 02/22/19 14:49 MCHC 30 % (32-34) L 02/22/19 14:49 RDW 20.5 % (13.2-15.2) H 02/22/19 14:49 Plt Count 28 K/mm3 (140-440) L 02/22/19 14:49 Lymph % (Auto) Sandwich Maker 02/22/19 14:49 Lymph # Sandwich Maker 02/22/19 14:49 Add Manual Diff Complete 02/22/19 14:49 Total Counted 200 02/22/19 14:49 Seg Neutrophils % Sandwich Maker 02/22/19 14:49 Seg Neuts % (Manual) 4.5 % (40.0-70.0) L 02/22/19 14:49 0 % 02/22/19 14:49 74.5 % (13.4-35.0) H 02/22/19 14:49 Reactive Lymphs % (Man) 0 % 02/22/19 14:49 2.5 % (0.0-7.3) 02/22/19 14:49 0.5 % (0.0-4.3) 02/22/19 14:49 0.5 % (0.0-1.8) 02/22/19 14:49 0 % 02/22/19 14:49 0 % 02/22/19 14:49 0 % 02/22/19 14:49 17.5 % 02/22/19 14:49 Nucleated RBC % Not Reportable 02/22/19 14:49 Seg Neutrophils # Man 0.0 K/mm3 (1.8-7.7) L 02/22/19 14:49 Band Neutrophils # 0.0 K/mm3 02/22/19 14:49 0.0 K/mm3 (1.2-5.4) L 02/22/19 14:49 Abs React Lymphs (Man) 0.0 K/mm3 02/22/19 14:49 0.0 K/mm3 (0.0-0.8) 02/22/19 14:49 0.0 K/mm3 (0.0-0.4) 02/22/19 14:49 0.0 K/mm3 (0.0-0.1) 02/22/19 14:49 0.0 K/mm3 02/22/19 14:49 0.0 K/mm3 02/22/19 14:49 0.0 K/mm3 02/22/19 14:49 Blast Cells # 0.0 K/mm3 02/22/19 14:49 Pathologist Review 02/22/19 14:49 Hypersegmented Neuts Not Reportable 02/22/19 14:49 Hyposegmented Neuts Not Reportable 02/22/19 14:49 Hypogranular Neuts Not Reportable 02/22/19 14:49 3+ 02/22/19 14:49 Not Reportable 02/22/19 14:49 Not Reportable 02/22/19 14:49 Not Reportable 02/22/19 14:49 Not Reportable 02/22/19 14:49 Not Reportable 02/22/19 14:49 Appears decreased 02/22/19 14:49 Not Reportable 02/22/19 14:49 Plt Clumps, EDTA Not Reportable 02/22/19 14:49 Not Reportable 02/22/19 14:49 Not Reportable 02/22/19 14:49 Not Reportable 02/22/19 14:49 Plt Morphology Comment Not Reportable 02/22/19 14:49 RBC Morphology Not Reportable 02/22/19 14:49 Dimorphic RBCs Not Reportable 02/22/19 14:49 Not Reportable 02/22/19 14:49 2+ 02/22/19 14:49 2+ 02/22/19 14:49 2+ 02/22/19 14:49 Not Reportable 02/22/19 14:49 Not Reportable 02/22/19 14:49 Not Reportable 02/22/19 14:49 Not Reportable 02/22/19 14:49 Not Reportable 02/22/19 14:49 1+ 02/22/19 14:49 Few 02/22/19 14:49 Few 02/22/19 14:49 Not Reportable 02/22/19 14:49 Not Reportable 02/22/19 14:49 Not Reportable 02/22/19 14:49 Not Reportable 02/22/19 14:49 Not Reportable 02/22/19 14:49 Not Reportable 02/22/19 14:49 Not Reportable 02/22/19 14:49 Acanthocytes (Spur) Not Reportable 02/22/19 14:49 Rouleaux Not Reportable 02/22/19 14:49 Not Reportable 02/22/19 14:49 Few 02/22/19 14:49 Not Reportable 02/22/19 14:49 Not Reportable 02/22/19 14:49 Hem Pathologist Commnt Sent to pathology 02/22/19 14:49 Sodium 132 mmol/L (137-145) L 02/22/19 14:49 Potassium 7.2 mmol/L (3.6-5.0) H* 02/23/19 10:09 Chloride 100.1 mmol/L (98-107) 02/22/19 14:49 Carbon Dioxide 21 mmol/L (22-30) L 02/22/19 14:49 18 mmol/L 02/22/19 14:49 BUN 14 mg/dL (9-20) 02/22/19 14:49 1.2 mg/dL (0.8-1.5) 02/22/19 14:49 Estimated GFR > 60 ml/min 02/22/19 14:49 12 % 02/22/19 14:49 Glucose 96 mg/dL (75-100) 02/22/19 14:49 Calcium 9.3 mg/dL (8.4-10.2) 02/22/19 14:49 5.50 mg/dL (0.1-1.2) H 02/22/19 14:49 AST 201 units/L (5-40) H 02/22/19 14:49 ALT 65 units/L (7-56) H 02/22/19 14:49 274 units/L (35-129) H 02/22/19 14:49 1092 units/L (91-180) H 02/22/19 14:49 6.5 g/dL (6.3-8.2) 02/22/19 14:49 2.8 g/dL (3.9-5) L 02/22/19 14:49 0.8 % 02/22/19 14:49 43 units/L (13-60) 02/22/19 14:49 Vitamin B12 > 2000 pg/mL (211-911) H 02/22/19 14:49 12.06 ng/mL (7.3-26.0) 02/22/19 14:49 Dalila (Yellow) 02/22/19 20:57 Slightly-cloudy (Clear) 02/22/19 20:57 5.0 (5.0-7.0) 02/22/19 20:57 Ur Specific [place] 1.014 (1.003-1.030) 02/22/19 20:57 <15 mg/dl mg/dL (Negative) 02/22/19 20:57 50 mg/dL (Negative) 02/22/19 20:57 Neg mg/dL (Negative) 02/22/19 20:57 Neg (Negative) 02/22/19 20:57 Neg (Negative) 02/22/19 20:57 Sm (Negative) 02/22/19 20:57 Positive (Negative) 02/22/19 20:57 4.0 mg/dL (<2.0) 02/22/19 20:57 Ur Leukocyte Esterase Neg (Negative) 02/22/19 20:57 9.0 /HPF (0.0-6.0) H 02/22/19 20:57 3.0 /HPF (0.0-6.0) 02/22/19 20:57 U Epithel Cells (Auto) 2.0 /HPF (0-13.0) 02/22/19 20:57 1+ /HPF (Negative) 02/22/19 20:57 Ur Transition Epith Cell 1 /HPF 02/22/19 20:57 Hyaline Casts 6 /LPF 02/22/19 20:57 Granular Casts 3 /LPF 02/22/19 20:57 Few /HPF 02/22/19 20:57 Plasma/Serum Alcohol 0.03 % (0-0.07) 02/22/19 14:49 Active Medications - Current Medications Current Medications: Generic Name Dose Route Start Last Admin Trade Name Freq PRN Reason Stop Dose Admin Acetaminophen 650 mg 02/22/19 20:51 Tylenol PO Q4H PRN Pain MILD(1-3)/Fever >100.5/SEGAL Sodium Chloride 1,000 mls @ 75 mls/hr 02/22/19 21:00 02/23/19 05:42 Nacl 0.9% 1000 Ml IV 75 mls/hr DIRECT MONICA Administration Piperacillin Sod/Tazobactam Sod 4.5 gm in 100 mls @ 200 mls/hr 02/22/19 22:00 02/23/19 15:48 Zosyn/Ns 4.5gm/100ml IV 200 mls/hr Q8HR MONICA Administration Protocol Morphine Sulfate 1 mg 02/22/19 21:46 Morphine IV Q4H PRN Pain, Moderate (4-6) Ondansetron HCl 4 mg 02/22/19 20:51 Zofran IV Q8H PRN Nausea And Vomiting Sodium Chloride 10 ml 02/22/19 22:00 02/23/19 13:02 Sodium Chloride Flush Syringe 10 Ml IV 10 ml BID MONICA Administration Sodium Chloride 10 ml 02/22/19 20:51 Sodium Chloride Flush Syringe 10 Ml IV PRN PRN LINE FLUSH
--- NOTE | 2019-02-23 16:33 | Discharge Summary ---
Providers - Providers Date of Admission: 02/22/19 20:51 Attending physician: LISA TORIBIO MD 02/22/19 20:51 Consult to Physician [CONS] Routine Comment: Consulting Provider: TIKA TAPIA Physician Instructions: Reason For Exam: Tcell lymphomas 02/23/19 16:28 Consult to Physician [CONS] Routine Reason For Exam: hyperkalemia Consulting Provider: KEYSHA TAYLOR Physician Instructions: Comment: Primary care physician: EMILI MENEZES Hospitalization Reason for admission: WEAKNESS Condition: Stable Hospital course: Patient is a 73-year-old male with PMHx of COPD, CAD status post stent 2, HTN, hyperlipidemia, history of T-cell lymphoma (following up with [facility]), alcohol use disorder who presents to the ER with complaints of weakness and dizziness. Patient reports that he has a history of T-cell lymphoma which makes him weak and tired at time, he also complains of watery and red eyes for the past few days. Patient denies any other complaints, he denies headache, denies visual changes, denies abdominal pain, denies shortness of breath, denies chest pain, denies fever or chills. Patient states that he comes to the ER because the symptoms were getting worse, his blood pressure is low. Patient admits to 3 alcoholic beverage per day and quit cigarettes many years ago. Patient was evaluated in the ER his WBC was 494.6, his potassium was 6.6, plt 28, his LFT's were elevated, he is admitted for further evaluation of his symptoms. On admission felt dyeing machine tender was consulted and following the discussion with Dr. priyank saldaña at [facility] recommendation was that the patient be transferred to their service for immediate treatment. This was completed indicated to the patient was agreeable. Assessment calcium was given to the patient on the need to quit alcohol use. Patient verbalized understanding Leukocytosis secondary to T-cell lymphoma with blasts EtOH use disorder Hyperkalemia Hypertension History of CAD Dyslipidemia Tobacco use disorder Generalized weakness Leukocytosis (due to T cell lymphoma) Dehydration Thrombocytopenia COPD (stable) Disposition: DC/TX-02 SHRT-TRM GEN HOSP IP Time spent for discharge: 35 MINS Core Measure Documentation - Palliative Care Palliative Care/ Comfort Measures: Not Applicable - Core Measures Any of the following diagnoses?: none Exam - Physical Exam Narrative exam: VITAL SIGNS: Reviewed. GENERAL: The patient appeared well nourished and normally developed, Vital signs as documented. HEAD: No signs of head trauma. EYES: Pupils are equal. Extraocular motions intact. EARS: Hearing grossly intact. MOUTH: Oropharynx is normal. NECK: No adenopathy, no JVD. CHEST: Chest with clear breath sounds bilaterally. No wheezes, rales, or rhonchi. CARDIAC: Regular rate and rhythm. S1 and S2, without murmurs, gallops, or rubs. VASCULAR: No Edema. Peripheral pulses normal and equal in all extremities. ABDOMEN: Soft, non tender and non distended. No rebound or guarding, and no masses palpated. Bowel Sounds normal. MUSCULOSKELETAL: Good range of motion of all major joints. Extremities without clubbing, cyanosis or edema. NEUROLOGIC EXAM: Alert and oriented x 3 No focal sensory or strength deficits. Speech normal. Follows commands. PSYCHIATRIC: Mood normal. SKIN: No rash or lesions. - Constitutional Vitals: Temp Pulse Resp BP Pulse Ox 97.9 F 87 15 114/57 98 02/23/19 13:00 02/23/19 09:46 02/23/19 09:46 02/23/19 09:46 02/23/19 09:46 Plan Follow up with: EMILI MENEZES MD [Primary Care Provider] - 7 Days
[2019-02-23] MEDS ORDERED: D50W (25GM) Syringe IV ONE ×2 (17:19→17:30)
[2019-02-23] MEDS ORDERED: KIONEX ONE (17:20)
[2019-02-23] MEDS ORDERED: HumuLIN R ONE (17:23)
[2019-02-23] MEDS ORDERED: HumuLIN R IV ONE (17:30)
[2019-02-23] MEDS ORDERED: CALCIUM GLUCONATE 2,000 MG in NACL 0.9% 100 ML IV ONE (17:30)
[2019-02-23] MEDS ORDERED: KIONEX PO ONE (17:31)
[2019-02-23 18:12] LABS: BUN/Creatinine Ratio 14; Blood Urea Nitrogen 13 mg/dL (9-20); Calcium 7.8 mg/dL (8.4-10.2); Hemolysis Index 7
[2019-02-23 19:40] VITALS: BP 117/68
--- NOTE | 2019-02-23 20:27 | Consultation ---
REFERRING PHYSICIAN: Dr. Keys. REASON FOR CONSULTATION: Leukocytosis, history of T-cell lymphoma, leukemia, being followed at [facility] by Dr. Estee Everett. HISTORY OF PRESENT ILLNESS: The patient is a 73-year-old male with past history of COPD, history of coronary artery disease, status post stent, hypertension, hyperlipidemia, history of T-cell leukemia, lymphoma, port placement recently, but no treatment given. The patient has seen Dr. Gustavo Marks in outpatient setting in my office. The patient came to the hospital because of weakness, fatigue and dizziness for the last few days. No history of headache. No visual disturbances. No shortness of breath. No chest pain. No fever. No chills. The patient lives with a friend. The patient had seen Dr. Estee Everett at [facility]. A port was placed, but no treatment was given. I spoke today to Dr. Estee Everett. History of alcohol use is present. He quit smoking a few years ago. In 2018 white cell count was 25. PAST MEDICAL HISTORY: Port placement. SOCIAL HISTORY: Lives with family/friends. History of smoking with snorting and chewing tobacco, history of alcohol usage. ALLERGIES: None. PRESENT MEDICATIONS: Include morphine, Zosyn. PHYSICAL EXAMINATION: VITAL SIGNS: Temperature 98, pulse 93, respirations 20, BP 121/62. HEENT: Pallor present. No icterus. NECK: No neck lymph nodes. HEART: S1, S2. LUNGS: Clear to auscultation. ABDOMEN: Soft. EXTREMITIES: No calf tenderness. NEUROLOGIC: Alert, awake, oriented. LABORATORY DATA: White cell 388, hemoglobin 8.3, MCV 80, platelet 28. Potassium of 6.6, creatinine 1.2, bilirubin 5.5. AST, ALT was 200, LDH 1092. B12 2000, folate 12. RADIOLOGY: Shows spleen enlargement and liver cyst. ASSESSMENT AND PLAN: 1. Leukocytosis, predominant lymphocytosis with some blasts. The patient had white cell count elevation and he was seen at [facility]. The port has been placed. I spoke to Dr. Estee Everett. She would like the patient to be transferred. 2. History of abnormal LFTs. Bilirubin is high. However, Radiology mentioned cyst in the liver. 3. Splenomegaly. 4. History of alcohol usage, 3 beers a day. 5. Potassium high. This could be spurious. 6. LDH elevated, likely secondary to elevated white cell count. 7. History of hypertension. 8. History of coronary artery disease. 9. History of hyperlipidemia. 10. History of tobacco chewing. I will follow the patient during inpatient stay and then in the clinic setting. I discussed with Dr. Keys regarding the patient's plan for transfer. JOB# [id number] NM/NTS
== END 2019-02-23 19:50 | disposition short-term general hospital (02) | DRG 841 ==
LOC: ED 13:15 → IMCU 20:51
PROVIDERS: ADMIT Internal Medicine; ATTEND Internal Medicine
DX: C91.50 Adult T-cell lymphoma/leukemia (HTLV-1-associated) not having achieved remission (principal); E87.1 Hypo-osmolality and hyponatremia; F10.188 Alcohol abuse with other alcohol-induced disorder; E86.0 Dehydration; D69.6 Thrombocytopenia, unspecified; J44.9 Chronic obstructive pulmonary disease, unspecified; E78.5 Hyperlipidemia, unspecified; Y90.9 Presence of alcohol in blood, level not specified; F17.200 Nicotine dependence, unspecified, uncomplicated; E87.5 Hyperkalemia; E78.00 Pure hypercholesterolemia, unspecified; D64.9 Anemia, unspecified; I25.10 Atherosclerotic heart disease of native coronary artery without angina pectoris; Z95.5 Presence of coronary angioplasty implant and graft
CPT/HCPCS: 36415; 70450; 71046; 74177; 76700; 80048; 80053; 80320; 81001; 82607; 82747; 83615; 83690; 84132; 85007; 85025; 87040; 87086; 93005; 93010; G0378; G0480; J0610; J1170; J1815; J2405; J2543; J3411; J7030; Q9967

== ENCOUNTER 2019-10-07 10:18 | Emergency (ER) | payer MEDICARE ==
--- NOTE | 2019-10-07 14:27 | Emergency Department Report ---
ED CPR HPI - General Chief Complaint: Cardiac Arrest/CPR Stated Complaint: CARDIAC ARREST Time Seen by Provider: 10/07/19 10:56 Source: EMS Mode of arrival: Stretcher Limitations: Other - History of Present Illness Initial Comments: 73-year-old male with extensive medical history to include lymphoma/leukemia. He was found on in asystole by paramedics. They noted he had some jaw stiffness. There are no signs of life. Medics stated that the considered afebrile pronouncement but they have no protocol. Therefore he was brought to this facility for further evaluation after continued unsuccessful resuscitative effort. The patient remained in asystole despite several rounds of epinephrine. His down time was likely long as he hadn't been seen by the family the medics told me for 4 hours. Complaint: found unresponsive -: hour(s) Place: home Bystander CPR Performed: No Initial Findings in the Field: systole (asystole) ROSC in the Field: No Associated Injuries: No Treatments Prior to Arrival: epinephrine mgs #, other (intraosseous catheter) - Related Data Allergies Allergy/AdvReac Type Severity Reaction Status Date / Time No Known Allergies Allergy Verified 02/22/19 13:20 ED Review of Systems ROS: Stated complaint: CARDIAC ARREST Other details as noted in HPI Comment: Unobtainable due to pts medical conditions ED Past Medical Hx - Past Medical History Previous Medical History?: Yes Hx Hypertension: Yes Hx CVA: No Hx COPD: Yes Additional medical history: high cholesterol. T-cell lymphoma - Surgical History Past Surgical History?: Yes Hx Coronary Stent: Yes (x2) - Social History Smoking Status: Current Every Day Smoker Substance Use Type: Alcohol (patient drinks daily) ED Physical Exam - General Limitations: Other General appearance: cachectic - Head Head exam: Present: atraumatic - Neck Neck exam: Present: normal inspection - Respiratory Respiratory exam: Present: other (no spontaneous breath sounds) - Cardiovascular Cardiovascular Exam: Present: other (no heart sounds) - GI/Abdominal GI/Abdominal exam: Absent: soft, distended - Extremities Exam Extremities exam: Present: other (IO catheter) - Neurological Exam Neurological exam: Present: other (GCS 3, completely unresponsive ) ED Course - Reevaluation(s) Reevaluation #1: Asystole was verified. Patient is already had prolonged resuscitation and downtime. Further efforts would be futile. Patient was pronounced DOA. Family was counseled. 10/07/19 14:37 Critical care attestation.: If time is entered above; I have spent that time in minutes in the direct care of this critically ill patient, excluding procedure time. ED Disposition Clinical Impression: Cardiac arrest Disposition: DC-20 Is pt being admited?: No Does the pt Need Aspirin: No Condition: Stable Referrals: PRIMARY CARE, [Primary Care Provider] - 3-5 Days Time of Disposition: 14:37
== END 2019-10-07 14:24 ==
LOC: ED 10:18
DX: I46.9 Cardiac arrest, cause unspecified (principal); I10 Essential (primary) hypertension; J44.9 Chronic obstructive pulmonary disease, unspecified; E78.00 Pure hypercholesterolemia, unspecified; F10.10 Alcohol abuse, uncomplicated; F17.200 Nicotine dependence, unspecified, uncomplicated; Z95.5 Presence of coronary angioplasty implant and graft
CPT/HCPCS: 92950